=== PATIENT | female | born 1935 | race Asian ===

== ENCOUNTER 2022-10-05 17:00 | Inpatient (IN) | payer MEDICARE, MEDICAID ==
[~2022-10-05] VITALS: Ht 160 cm; Wt 35.0 kg
[2022-10-05] MEDS ORDERED: DIGO125T84 PO (17:10)
[2022-10-05] MEDS ORDERED: ATOR40TA28 PO (17:10)
[2022-10-05] MEDS ORDERED: RIVA20TA PO (17:10)
[2022-10-05] MEDS ORDERED: OS500 PO (17:10)
[2022-10-05] MEDS ORDERED: OXYB5TAB20 PO (17:10)
[2022-10-05] MEDS ORDERED: LISI-894 PO (17:10)
[2022-10-05 17:56] LABS: BASOPHILS % (AUTO) 0.5 % (0.0-2.0); EOSINOPHILS % (AUTO) 0 % (1.0-6.0); LYMPHOCYTES # (AUTO) 1.2 K/uL (1.0-4.8); LYMPHOCYTES % (AUTO) 7.3 % (22.0-44.0); MEAN CORPUSCULAR HEMOGLOBIN 31.1 pg (26.0-34.0); MEAN CORPUSCULAR HGB CONC 33.4 G/dL (31.0-37.0); MEAN CORPUSCULAR VOLUME 93 fL (80-100); MONOCYTES # (AUTO) 1.5 K/uL (0.1-1.0); MONOCYTES % (AUTO) 9.2 % (2.0-9.0); NEUTROPHILS # (AUTO) 13.3 K/uL (1.8-7.7); PLATELET COUNT (AUTO) 226 K/uL (150-450); RED BLOOD CELL COUNT(AUTO) 4.18 MIL/uL (4.00-5.20); RED CELL DISTRIBUTION WIDTH 13.8 % (11.5-14.5)
[2022-10-05 18:06] LABS: ANION GAP 8 mmol/L (8-16); CARBON DIOXIDE 28 mmol/L (22-29); CHLORIDE 100 mmol/L (98-107); CREATININE 0.81 mg/dL (0.60-1.30); GLOMERULAR FILTR. RATE CALC > 60 mL/min (>60); GLUCOSE,RANDOM 166 mg/dL (70-110); POTASSIUM 4.8 mmol/L (3.5-5.1); SODIUM SERUM 136 mmol/L (136-145); UREA NITROGEN, BLOOD 22 mg/dL (7-18)
[2022-10-05 18:17] LABS: LACTIC ACID 1.3 mmol/L (0.4-2.0)
[2022-10-05 18:20] LABS: COVID AG,FIA SOURCE NASOPHARYNGEAL
[2022-10-05 18:23] LABS: B-TYPE NATRIURETIC PEPTIDE 130 pg/mL (0-100)
[2022-10-05 18:24] LABS: ALANINE AMINOTRANSFERASE 21 U/L (12-78); ALBUMIN 3.5 g/dL (3.4-5.0); ALKALINE PHOSPHATASE 165 U/L (46-116); ASPARTATE AMINOTRANSFERASE 22 U/L (15-37); LIPASE 147 U/L (73-393); TOTAL PROTEIN, SERUM 8.1 g/dL (6.4-8.2)
[2022-10-05] MEDS ORDERED: ASPIRIN 81 MG CHEWABLE TABLET PO ONE (19:45)
[2022-10-05] MEDS ORDERED: ONDANSETRON HCL 4 MG/2 ML VIAL IVP PRN (21:00)
[2022-10-05] MEDS ORDERED: SODIUM CHLORIDE 0.9% 500 ML IV ONE (21:00)
[2022-10-05] MEDS: ATORVASTATIN CALCIUM 40 MG TABLET PO SCH (21:55)
[2022-10-05] MEDS: PIPERACILLIN/TAZO 3.375 GM/D5W 50 ML IV SCH (22:14)
[2022-10-05] MEDS ORDERED: RINGERS SOLUTION,LACTATED 1,000 ML IV SCH (23:59)
[2022-10-06] MEDS: METOPROLOL TARTRATE 5 MG/5 ML VIAL IVP SCH ×5 (00:53→23:49)
[2022-10-06 02:22] LABS: APPEARANCE,URINE CLEAR (CLEAR); BILIRUBIN,URINE NEGATIVE (NEGATIVE); GLUCOSE, URINE (UA) TRACE mg/dL (NEGATIVE); KETONES,URINE NEGATIVE (NEGATIVE); LEUKOCYTE ESTERASE ,URINE MODERATE (NEGATIVE); NITRATE,URINE NEGATIVE (NEGATIVE); OCCULT BLOOD,URINE MODERATE (NEGATIVE); PROTEIN,URINE 30-70 mg/dL (NEGATIVE); SPECIFIC GRAVITIY, URINE 1.021 (1.003-1.030); UROBILINOGEN,URINE <=1.0 mg/dL (<=1.0)
[2022-10-06 02:33] LABS: BACTERIA,URINE Few /HPF (None Seen); SQUAMOUS EPITHELIAL CELL,UR Few /LPF (None Seen)
[2022-10-06 02:34] LABS: AMORPHOUS SEDIMENT,UR Few /LPF (None Seen)
[2022-10-06] MEDS ORDERED: HALOPERIDOL LACTATE 5 MG/ML VIAL IM ONE ×2 (03:00→07:00)
[2022-10-06] MEDS ORDERED: DiphenhydrAMINE HCL 50 MG/ML VIAL IVP ONE ×2 (03:00→07:00)
[2022-10-06] MEDS: PIPERACILLIN/TAZO 3.375 GM/D5W 50 ML IV SCH (04:13)
[2022-10-06] MEDS ORDERED: LORazepam 2 MG/ML VIAL IVP ONE (07:00)
[2022-10-06 07:21] LABS: BASOPHILS % (AUTO) 0.3 % (0.0-2.0); EOSINOPHILS % (AUTO) 0 % (1.0-6.0); HEMATOCRIT 37.6 % (36-46); HEMOGLOBIN 12.6 g/dL (12.0-16.0); LYMPHOCYTES # (AUTO) 1.6 K/uL (1.0-4.8); LYMPHOCYTES % (AUTO) 9.7 % (22.0-44.0); MEAN CORPUSCULAR HEMOGLOBIN 31.3 pg (26.0-34.0); MEAN CORPUSCULAR HGB CONC 33.5 G/dL (31.0-37.0); MEAN CORPUSCULAR VOLUME 93 fL (80-100); MONOCYTES # (AUTO) 1.3 K/uL (0.1-1.0); MONOCYTES % (AUTO) 8.1 % (2.0-9.0); NEUTROPHILS # (AUTO) 13.3 K/uL (1.8-7.7); NEUTROPHILS % (AUTO) 81.9 % (40.0-70.0); PLATELET COUNT (AUTO) 223 K/uL (150-450); RED BLOOD CELL COUNT(AUTO) 4.03 MIL/uL (4.00-5.20); RED CELL DISTRIBUTION WIDTH 13.7 % (11.5-14.5)
[2022-10-06 07:39] LABS: CALCIUM, TOTAL 9.4 mg/dL (8.8-10.5); CREATININE 1.02 mg/dL (0.60-1.30); MAGNESIUM 2.1 mg/dL (1.80-2.40); POTASSIUM 3.3 mmol/L (3.5-5.1)
[2022-10-06] MEDS: CALCIUM [CALCIUM CARB 1250MG] 500 MG TABLET PO SCH (08:20)
[2022-10-06] MEDS: DIGOXIN 125 MCG TABLET PO SCH (08:20)
[2022-10-06] MEDS: LISINOPRIL 20 MG TABLET PO SCH (08:20)
[2022-10-06] MEDS ORDERED: OXYBUTYNIN CHLORIDE 5 MG TABLET PO SCH (09:00)
[2022-10-06] MEDS: PIPERACILLIN SODIUM/TAZOBACTAM 2.25 GM in DEXTROSE 5%-WATER 50 ML IV SCH ×3 (09:17→23:23)
[2022-10-06] MEDS ORDERED: POTASSIUM CHL 10 MEQ/WATER 50 ML IV PRN (09:30)
[2022-10-06] MEDS ORDERED: POTASSIUM CHLORIDE 20 MEQ ER TABLET PO PRN (09:30)
[2022-10-06 12:19] LABS: INR 1.1 (0.9-1.1); PROTHROMBIN TIME 11.6 SEC (9.4-11.6)
[2022-10-06] MEDS ORDERED: LIDOCAINE/PF 1% 30 ML VIAL ONE (14:45)
[2022-10-06 16:28] VITALS: BP 152/92
[2022-10-06] MEDS ORDERED: RIVAROXABAN 20 MG TABLET PO SCH (17:30)
[2022-10-06] MEDS: RIVAROXABAN 15 MG TABLET PO SCH (18:00)
[2022-10-06 20:12] VITALS: BP 142/80
[2022-10-06] MEDS ORDERED: DILTIAZEM HCL 5 MG/ML 5 ML VIAL IVP ONE (20:45)
[2022-10-06] MEDS: ATORVASTATIN CALCIUM 40 MG TABLET PO SCH (21:00)
[2022-10-06 23:52] VITALS: BP 154/107
[2022-10-07] VITALS (7 sets, daily range): BP systolic 132–148; BP diastolic 67–104
[2022-10-07] MEDS ORDERED: LORazepam 2 MG/ML VIAL IVP ONE (01:15)
[2022-10-07] MEDS ORDERED: DiphenhydrAMINE HCL 50 MG/ML VIAL IM ONE (01:15)
[2022-10-07] MEDS ORDERED: HALOPERIDOL LACTATE 5 MG/ML VIAL IM ONE (01:15)
[2022-10-07] MEDS ORDERED: DILTIAZEM HCL 5 MG/ML 5 ML VIAL IVP ONE (02:45)
[2022-10-07] MEDS: PIPERACILLIN SODIUM/TAZOBACTAM 2.25 GM in DEXTROSE 5%-WATER 50 ML IV SCH ×4 (04:13→22:34)
[2022-10-07] MEDS: METOPROLOL TARTRATE 5 MG/5 ML VIAL IVP SCH (06:43)
[2022-10-07] MEDS: DIGOXIN 125 MCG TABLET PO SCH (08:51)
[2022-10-07] MEDS: LISINOPRIL 20 MG TABLET PO SCH (08:51)
[2022-10-07] MEDS: CALCIUM [CALCIUM CARB 1250MG] 500 MG TABLET PO SCH (08:52)
[2022-10-07] MEDS ORDERED: POTASSIUM CHLORIDE 20 MEQ ER TABLET PO PRN (09:15)
[2022-10-07] MEDS ORDERED: POTASSIUM CHL 10 MEQ/WATER 50 ML IV PRN (09:15)
[2022-10-07] MEDS: METOPROLOL TARTRATE 25 MG TABLET PO SCH ×3 (09:36→18:45)
[2022-10-07 11:19] LABS: BASOPHILS % (AUTO) 0.4 % (0.0-2.0); EOSINOPHILS % (AUTO) 0.7 % (1.0-6.0); HEMATOCRIT 36.7 % (36-46); HEMOGLOBIN 12.5 g/dL (12.0-16.0); LYMPHOCYTES # (AUTO) 0.8 K/uL (1.0-4.8); LYMPHOCYTES % (AUTO) 7.3 % (22.0-44.0); MEAN CORPUSCULAR HEMOGLOBIN 31.3 pg (26.0-34.0); MEAN CORPUSCULAR HGB CONC 33.9 G/dL (31.0-37.0); MEAN CORPUSCULAR VOLUME 92 fL (80-100); MONOCYTES # (AUTO) 1.1 K/uL (0.1-1.0); MONOCYTES % (AUTO) 10.5 % (2.0-9.0); NEUTROPHILS # (AUTO) 8.8 K/uL (1.8-7.7); NEUTROPHILS % (AUTO) 81.1 % (40.0-70.0); PLATELET COUNT (AUTO) 217 K/uL (150-450); RED BLOOD CELL COUNT(AUTO) 3.98 MIL/uL (4.00-5.20); RED CELL DISTRIBUTION WIDTH 13.7 % (11.5-14.5)
[2022-10-07 11:33] LABS: ANION GAP 6 mmol/L (8-16); CALCIUM, TOTAL 9.4 mg/dL (8.8-10.5); CARBON DIOXIDE 28 mmol/L (22-29); CHLORIDE 104 mmol/L (98-107); CREATININE 0.65 mg/dL (0.60-1.30); GLOMERULAR FILTR. RATE CALC > 60 mL/min (>60); GLUCOSE,RANDOM 138 mg/dL (70-110); POTASSIUM 3.7 mmol/L (3.5-5.1); SODIUM SERUM 138 mmol/L (136-145); UREA NITROGEN, BLOOD 20 mg/dL (7-18)
[2022-10-07] MEDS: RIVAROXABAN 15 MG TABLET PO SCH (18:45)
[2022-10-07] MEDS: ATORVASTATIN CALCIUM 40 MG TABLET PO SCH (20:21)
[2022-10-08] MEDS: METOPROLOL TARTRATE 25 MG TABLET PO SCH ×4 (00:19→17:28)
[2022-10-08 00:30] VITALS: BP 156/97
[2022-10-08 04:00] VITALS: BP 161/90
[2022-10-08] MEDS: PIPERACILLIN SODIUM/TAZOBACTAM 2.25 GM in DEXTROSE 5%-WATER 50 ML IV SCH ×4 (04:56→22:13)
[2022-10-08] MEDS ORDERED: DILTIAZEM HCL 5 MG/ML 5 ML VIAL IVP ONE (06:15)
[2022-10-08 07:09] VITALS: BP 140/69
[2022-10-08] MEDS: LISINOPRIL 20 MG TABLET PO SCH (08:53)
[2022-10-08] MEDS: CALCIUM [CALCIUM CARB 1250MG] 500 MG TABLET PO SCH (08:53)
[2022-10-08] MEDS: DIGOXIN 125 MCG TABLET PO SCH (08:53)
[2022-10-08 11:41] VITALS: BP 135/79
[2022-10-08 15:23] VITALS: BP 135/85
[2022-10-08] MEDS: RIVAROXABAN 15 MG TABLET PO SCH (17:28)
[2022-10-08 19:40] VITALS: BP 142/77
[2022-10-08] MEDS ORDERED: HALOPERIDOL LACTATE 5 MG/ML VIAL IM ONE (21:00)
[2022-10-08] MEDS: ATORVASTATIN CALCIUM 40 MG TABLET PO SCH (21:00)
[2022-10-09 00:30] VITALS: BP 148/84
[2022-10-09] MEDS: METOPROLOL TARTRATE 25 MG TABLET PO SCH ×2 (00:42→06:05)
[2022-10-09] MEDS: PIPERACILLIN SODIUM/TAZOBACTAM 2.25 GM in DEXTROSE 5%-WATER 50 ML IV SCH ×4 (03:46→21:43)
[2022-10-09 04:42] VITALS: BP 137/79
[2022-10-09] MEDS: CALCIUM [CALCIUM CARB 1250MG] 500 MG TABLET PO SCH (07:42)
[2022-10-09] MEDS: LISINOPRIL 20 MG TABLET PO SCH (07:42)
[2022-10-09] MEDS: DIGOXIN 125 MCG TABLET PO SCH (07:42)
[2022-10-09 07:46] VITALS: BP 146/95
[2022-10-09 11:26] VITALS: BP 160/93
[2022-10-09 15:17] VITALS: BP 151/80
[2022-10-09] MEDS: METOPROLOL TARTRATE 50 MG TABLET PO SCH (16:47)
[2022-10-09] MEDS: RIVAROXABAN 15 MG TABLET PO SCH (17:58)
[2022-10-09 20:01] VITALS: BP 150/78
[2022-10-09] MEDS: ATORVASTATIN CALCIUM 40 MG TABLET PO SCH (20:42)
[2022-10-10] MEDS: METOPROLOL TARTRATE 50 MG TABLET PO SCH ×3 (00:03→16:28)
[2022-10-10 00:31] VITALS: BP 157/109
[2022-10-10] MEDS: PIPERACILLIN SODIUM/TAZOBACTAM 2.25 GM in DEXTROSE 5%-WATER 50 ML IV SCH ×4 (04:06→22:40)
[2022-10-10 04:54] VITALS: BP 138/98
[2022-10-10 07:25] VITALS: BP 162/91
[2022-10-10] MEDS: DIGOXIN 125 MCG TABLET PO SCH (08:07)
[2022-10-10] MEDS: CALCIUM [CALCIUM CARB 1250MG] 500 MG TABLET PO SCH (08:07)
[2022-10-10] MEDS: LISINOPRIL 20 MG TABLET PO SCH (08:07)
[2022-10-10 11:20] VITALS: BP 140/72
[2022-10-10 16:04] VITALS: BP 142/70
[2022-10-10] MEDS: RIVAROXABAN 15 MG TABLET PO SCH (18:49)
[2022-10-10 20:25] VITALS: BP 135/64
[2022-10-10] MEDS: ATORVASTATIN CALCIUM 40 MG TABLET PO SCH (20:50)
[2022-10-11 00:43] VITALS: BP 119/89
[2022-10-11] MEDS: METOPROLOL TARTRATE 50 MG TABLET PO SCH ×3 (00:47→16:11)
[2022-10-11] MEDS: PIPERACILLIN SODIUM/TAZOBACTAM 2.25 GM in DEXTROSE 5%-WATER 50 ML IV SCH ×4 (03:42→21:17)
[2022-10-11 04:23] VITALS: BP 142/73
[2022-10-11 08:00] VITALS: BP 133/85
[2022-10-11] MEDS: CALCIUM [CALCIUM CARB 1250MG] 500 MG TABLET PO SCH (08:42)
[2022-10-11] MEDS: DIGOXIN 125 MCG TABLET PO SCH (08:42)
[2022-10-11] MEDS: LISINOPRIL 20 MG TABLET PO SCH (08:42)
[2022-10-11 13:06] VITALS: BP 129/73
[2022-10-11 16:00] VITALS: BP 145/86
[2022-10-11] MEDS: RIVAROXABAN 15 MG TABLET PO SCH (17:38)
[2022-10-11 20:01] VITALS: BP 134/84
[2022-10-11] MEDS: ATORVASTATIN CALCIUM 40 MG TABLET PO SCH (21:17)
[2022-10-12 00:21] VITALS: BP 139/58
[2022-10-12] MEDS: METOPROLOL TARTRATE 50 MG TABLET PO SCH ×4 (00:41→22:24)
[2022-10-12] MEDS ORDERED: SODIUM CHLORIDE 0.9% 250 ML IV ONE (03:16)
[2022-10-12] MEDS: PIPERACILLIN SODIUM/TAZOBACTAM 2.25 GM in DEXTROSE 5%-WATER 50 ML IV SCH ×5 (03:18→22:23)
[2022-10-12 04:52] VITALS: BP 144/54
[2022-10-12] MEDS: LISINOPRIL 20 MG TABLET PO SCH (07:51)
[2022-10-12] MEDS: DIGOXIN 125 MCG TABLET PO SCH (07:51)
[2022-10-12] MEDS: CALCIUM [CALCIUM CARB 1250MG] 500 MG TABLET PO SCH (07:51)
[2022-10-12 08:06] VITALS: BP 165/86
[2022-10-12 11:13] VITALS: BP 140/65
[2022-10-12 13:04] LABS: BASOPHILS % (AUTO) 0.8 % (0.0-2.0); EOSINOPHILS % (AUTO) 2.5 % (1.0-6.0); HEMATOCRIT 39.5 % (36-46); HEMOGLOBIN 13.2 g/dL (12.0-16.0); LYMPHOCYTES # (AUTO) 1.1 K/uL (1.0-4.8); LYMPHOCYTES % (AUTO) 10.6 % (22.0-44.0); MEAN CORPUSCULAR HEMOGLOBIN 30.9 pg (26.0-34.0); MEAN CORPUSCULAR HGB CONC 33.3 G/dL (31.0-37.0); MEAN CORPUSCULAR VOLUME 93 fL (80-100); MONOCYTES # (AUTO) 0.8 K/uL (0.1-1.0); MONOCYTES % (AUTO) 8.1 % (2.0-9.0); NEUTROPHILS # (AUTO) 7.9 K/uL (1.8-7.7); PLATELET COUNT (AUTO) 279 K/uL (150-450); RED BLOOD CELL COUNT(AUTO) 4.26 MIL/uL (4.00-5.20); RED CELL DISTRIBUTION WIDTH 13.3 % (11.5-14.5)
[2022-10-12 13:08] LABS: ANION GAP 6 mmol/L (8-16); CALCIUM, TOTAL 9.6 mg/dL (8.8-10.5); CARBON DIOXIDE 32 mmol/L (22-29); CHLORIDE 102 mmol/L (98-107); CREATININE 0.65 mg/dL (0.60-1.30); GLOMERULAR FILTR. RATE CALC > 60 mL/min (>60); GLUCOSE,RANDOM 183 mg/dL (70-110); POTASSIUM 3.4 mmol/L (3.5-5.1); SODIUM SERUM 140 mmol/L (136-145); UREA NITROGEN, BLOOD 20 mg/dL (7-18)
[2022-10-12 15:22] VITALS: BP 148/64
[2022-10-12] MEDS: RIVAROXABAN 15 MG TABLET PO SCH (17:33)
[2022-10-12 19:20] VITALS: BP 129/93
[2022-10-12] MEDS: ATORVASTATIN CALCIUM 40 MG TABLET PO SCH (22:14)
[2022-10-13 00:19] VITALS: BP 149/71
[2022-10-13] MEDS: PIPERACILLIN SODIUM/TAZOBACTAM 2.25 GM in DEXTROSE 5%-WATER 50 ML IV SCH ×4 (05:34→21:34)
[2022-10-13 05:39] VITALS: BP 138/87
[2022-10-13 07:45] VITALS: BP 137/79
[2022-10-13] MEDS: MULTIVITAMINS WITH MINERALS, THERAPEUTIC TABLET PO SCH (10:52)
[2022-10-13] MEDS: DIGOXIN 125 MCG TABLET PO SCH (10:58)
[2022-10-13] MEDS: LISINOPRIL 20 MG TABLET PO SCH (10:58)
[2022-10-13] MEDS: CALCIUM [CALCIUM CARB 1250MG] 500 MG TABLET PO SCH (10:58)
[2022-10-13] MEDS: METOPROLOL TARTRATE 50 MG TABLET PO SCH ×2 (10:59→16:26)
[2022-10-13] MEDS: THIAMINE 100 MG TABLET PO SCH (10:59)
[2022-10-13 11:13] LABS: BASOPHILS % (AUTO) 0.5 % (0.0-2.0); EOSINOPHILS % (AUTO) 0.8 % (1.0-6.0); HEMATOCRIT 36.2 % (36-46); HEMOGLOBIN 12.3 g/dL (12.0-16.0); LYMPHOCYTES % (AUTO) 9.4 % (22.0-44.0); MEAN CORPUSCULAR HEMOGLOBIN 31.3 pg (26.0-34.0); MEAN CORPUSCULAR HGB CONC 33.9 G/dL (31.0-37.0); MEAN CORPUSCULAR VOLUME 92 fL (80-100); MONOCYTES # (AUTO) 0.8 K/uL (0.1-1.0); MONOCYTES % (AUTO) 7.2 % (2.0-9.0); NEUTROPHILS % (AUTO) 82.1 % (40.0-70.0); PLATELET COUNT (AUTO) 294 K/uL (150-450); RED BLOOD CELL COUNT(AUTO) 3.92 MIL/uL (4.00-5.20); RED CELL DISTRIBUTION WIDTH 13.5 % (11.5-14.5)
[2022-10-13 11:22] LABS: ANION GAP 7 mmol/L (8-16); CALCIUM, TOTAL 9.5 mg/dL (8.8-10.5); CARBON DIOXIDE 32 mmol/L (22-29); CHLORIDE 106 mmol/L (98-107); CREATININE 0.84 mg/dL (0.60-1.30); GLOMERULAR FILTR. RATE CALC > 60 mL/min (>60); GLUCOSE,RANDOM 196 mg/dL (70-110); SODIUM SERUM 145 mmol/L (136-145); UREA NITROGEN, BLOOD 29 mg/dL (7-18)
[2022-10-13 11:25] LABS: POTASSIUM 2.9 mmol/L (3.5-5.1)
[2022-10-13 12:12] VITALS: BP 146/80
[2022-10-13 15:20] VITALS: BP 140/90
[2022-10-13] MEDS: RIVAROXABAN 15 MG TABLET PO SCH (18:47)
[2022-10-13 21:22] VITALS: BP 143/84
[2022-10-13] MEDS: ATORVASTATIN CALCIUM 40 MG TABLET PO SCH (21:33)
[2022-10-14] MEDS: METOPROLOL TARTRATE 50 MG TABLET PO SCH ×4 (00:49→23:30)
[2022-10-14 01:04] VITALS: BP 134/74
[2022-10-14] MEDS: PIPERACILLIN SODIUM/TAZOBACTAM 2.25 GM in DEXTROSE 5%-WATER 50 ML IV SCH ×4 (03:52→21:30)
[2022-10-14 03:55] VITALS: BP 140/71
[2022-10-14 07:11] VITALS: BP 121/64
[2022-10-14] MEDS: THIAMINE 100 MG TABLET PO SCH (08:45)
[2022-10-14] MEDS: CALCIUM [CALCIUM CARB 1250MG] 500 MG TABLET PO SCH (08:45)
[2022-10-14] MEDS: DIGOXIN 125 MCG TABLET PO SCH (08:45)
[2022-10-14] MEDS: LISINOPRIL 20 MG TABLET PO SCH (08:45)
[2022-10-14] MEDS: MULTIVITAMINS WITH MINERALS, THERAPEUTIC TABLET PO SCH (08:45)
[2022-10-14 11:27] VITALS: BP 136/75
[2022-10-14] MEDS: RIVAROXABAN 15 MG TABLET PO SCH (18:25)
[2022-10-14] MEDS: ATORVASTATIN CALCIUM 40 MG TABLET PO SCH (21:03)
[2022-10-14 21:29] VITALS: BP 135/73
[2022-10-15] VITALS (7 sets, daily range): BP systolic 120–142; BP diastolic 58–79
[2022-10-15] MEDS: PIPERACILLIN SODIUM/TAZOBACTAM 2.25 GM in DEXTROSE 5%-WATER 50 ML IV SCH ×4 (03:45→20:42)
[2022-10-15] MEDS: MULTIVITAMINS WITH MINERALS, THERAPEUTIC TABLET PO SCH (09:11)
[2022-10-15] MEDS: LISINOPRIL 20 MG TABLET PO SCH (09:11)
[2022-10-15] MEDS: THIAMINE 100 MG TABLET PO SCH (09:11)
[2022-10-15] MEDS: METOPROLOL TARTRATE 50 MG TABLET PO SCH ×2 (09:11→17:50)
[2022-10-15] MEDS: DIGOXIN 125 MCG TABLET PO SCH (09:11)
[2022-10-15] MEDS: CALCIUM [CALCIUM CARB 1250MG] 500 MG TABLET PO SCH (09:11)
[2022-10-15] MEDS: RIVAROXABAN 15 MG TABLET PO SCH (17:50)
[2022-10-15] MEDS: ATORVASTATIN CALCIUM 40 MG TABLET PO SCH (21:14)
[2022-10-16] MEDS: METOPROLOL TARTRATE 50 MG TABLET PO SCH ×4 (00:41→23:33)
[2022-10-16] MEDS: PIPERACILLIN SODIUM/TAZOBACTAM 2.25 GM in DEXTROSE 5%-WATER 50 ML IV SCH ×4 (04:28→21:33)
[2022-10-16 06:23] VITALS: BP 132/80
[2022-10-16 07:30] VITALS: BP 129/72
[2022-10-16] MEDS: THIAMINE 100 MG TABLET PO SCH (08:05)
[2022-10-16] MEDS: DIGOXIN 125 MCG TABLET PO SCH (08:05)
[2022-10-16] MEDS: LISINOPRIL 20 MG TABLET PO SCH (08:05)
[2022-10-16] MEDS: MULTIVITAMINS WITH MINERALS, THERAPEUTIC TABLET PO SCH (08:05)
[2022-10-16] MEDS: CALCIUM [CALCIUM CARB 1250MG] 500 MG TABLET PO SCH (08:05)
[2022-10-16 11:07] VITALS: BP 116/78
[2022-10-16] MEDS ORDERED: LOPERAMIDE HCL 2 MG/15 ML SUSPENSION UDCUP PO PRN (15:00)
[2022-10-16 15:23] VITALS: BP 108/59
[2022-10-16] MEDS: RIVAROXABAN 15 MG TABLET PO SCH (17:01)
[2022-10-16 19:36] VITALS: BP 122/57
[2022-10-16] MEDS: ATORVASTATIN CALCIUM 40 MG TABLET PO SCH (20:10)
[2022-10-17] VITALS (7 sets, daily range): BP systolic 104–121; BP diastolic 53–82
[2022-10-17] MEDS: PIPERACILLIN SODIUM/TAZOBACTAM 2.25 GM in DEXTROSE 5%-WATER 50 ML IV SCH ×4 (04:07→21:38)
[2022-10-17] MEDS: METOPROLOL TARTRATE 50 MG TABLET PO SCH ×3 (08:00→23:50)
[2022-10-17] MEDS: MULTIVITAMINS WITH MINERALS, THERAPEUTIC TABLET PO SCH (08:44)
[2022-10-17] MEDS: DIGOXIN 125 MCG TABLET PO SCH (08:45)
[2022-10-17] MEDS: LISINOPRIL 20 MG TABLET PO SCH (08:45)
[2022-10-17] MEDS: THIAMINE 100 MG TABLET PO SCH (08:46)
[2022-10-17] MEDS: CALCIUM [CALCIUM CARB 1250MG] 500 MG TABLET PO SCH (08:46)
[2022-10-17] MEDS: RIVAROXABAN 15 MG TABLET PO SCH (17:47)
[2022-10-17] MEDS: ATORVASTATIN CALCIUM 40 MG TABLET PO SCH (20:33)
[2022-10-18] MEDS: PIPERACILLIN SODIUM/TAZOBACTAM 2.25 GM in DEXTROSE 5%-WATER 50 ML IV SCH ×2 (04:13→11:06)
[2022-10-18 04:46] VITALS: BP 119/76
[2022-10-18 08:42] VITALS: BP 106/72
[2022-10-18] MEDS: METOPROLOL TARTRATE 50 MG TABLET PO SCH ×2 (09:34→16:43)
[2022-10-18] MEDS: LISINOPRIL 20 MG TABLET PO SCH (09:35)
[2022-10-18] MEDS: THIAMINE 100 MG TABLET PO SCH (09:35)
[2022-10-18] MEDS: CALCIUM [CALCIUM CARB 1250MG] 500 MG TABLET PO SCH (09:35)
[2022-10-18] MEDS: DIGOXIN 125 MCG TABLET PO SCH (09:35)
[2022-10-18] MEDS: MULTIVITAMINS WITH MINERALS, THERAPEUTIC TABLET PO SCH (09:35)
[2022-10-18 11:38] VITALS: BP 116/61
[2022-10-18 15:58] VITALS: BP 111/62
[2022-10-18] MEDS: RIVAROXABAN 15 MG TABLET PO SCH (17:54)
[2022-10-18 19:22] VITALS: BP 118/52
[2022-10-18] MEDS: NYSTATIN 15 GM POWDER BOTTLE TP SCH (21:48)
[2022-10-18] MEDS: ATORVASTATIN CALCIUM 40 MG TABLET PO SCH (21:48)
[2022-10-19] VITALS (7 sets, daily range): BP systolic 103–126; BP diastolic 53–77
[2022-10-19] MEDS: METOPROLOL TARTRATE 50 MG TABLET PO SCH ×4 (00:51→23:33)
[2022-10-19] MEDS: DIGOXIN 125 MCG TABLET PO SCH (08:39)
[2022-10-19] MEDS: LISINOPRIL 20 MG TABLET PO SCH (08:40)
[2022-10-19] MEDS: THIAMINE 100 MG TABLET PO SCH (08:40)
[2022-10-19] MEDS: CALCIUM [CALCIUM CARB 1250MG] 500 MG TABLET PO SCH (08:40)
[2022-10-19] MEDS: NYSTATIN 15 GM POWDER BOTTLE TP SCH ×2 (10:52→19:55)
[2022-10-19] MEDS: MULTIVITAMINS WITH MINERALS, THERAPEUTIC TABLET PO SCH (10:52)
[2022-10-19] MEDS: RIVAROXABAN 15 MG TABLET PO SCH (18:27)
[2022-10-19] MEDS: ATORVASTATIN CALCIUM 40 MG TABLET PO SCH (19:55)
[2022-10-20 04:39] VITALS: BP 108/72
[2022-10-20 08:00] VITALS: BP 122/72
[2022-10-20 08:43] LABS: BASOPHILS % (AUTO) 0.7 % (0.0-2.0); EOSINOPHILS % (AUTO) 3.2 % (1.0-6.0); HEMATOCRIT 32.9 % (36-46); HEMOGLOBIN 10.9 g/dL (12.0-16.0); LYMPHOCYTES # (AUTO) 1.5 K/uL (1.0-4.8); LYMPHOCYTES % (AUTO) 13.3 % (22.0-44.0); MEAN CORPUSCULAR HEMOGLOBIN 30.7 pg (26.0-34.0); MEAN CORPUSCULAR HGB CONC 33.1 G/dL (31.0-37.0); MEAN CORPUSCULAR VOLUME 93 fL (80-100); MONOCYTES # (AUTO) 0.9 K/uL (0.1-1.0); MONOCYTES % (AUTO) 8.1 % (2.0-9.0); NEUTROPHILS # (AUTO) 8.2 K/uL (1.8-7.7); NEUTROPHILS % (AUTO) 74.7 % (40.0-70.0); PLATELET COUNT (AUTO) 376 K/uL (150-450); RED BLOOD CELL COUNT(AUTO) 3.54 MIL/uL (4.00-5.20)
[2022-10-20] MEDS: LISINOPRIL 20 MG TABLET PO SCH (08:51)
[2022-10-20] MEDS: MULTIVITAMINS WITH MINERALS, THERAPEUTIC TABLET PO SCH (08:51)
[2022-10-20] MEDS: THIAMINE 100 MG TABLET PO SCH (08:51)
[2022-10-20] MEDS: CALCIUM [CALCIUM CARB 1250MG] 500 MG TABLET PO SCH (08:51)
[2022-10-20] MEDS: DIGOXIN 125 MCG TABLET PO SCH (08:51)
[2022-10-20] MEDS: METOPROLOL TARTRATE 50 MG TABLET PO SCH ×2 (08:51→17:42)
[2022-10-20 08:55] LABS: ANION GAP 3 mmol/L (8-16); CALCIUM, TOTAL 9.3 mg/dL (8.8-10.5); CARBON DIOXIDE 31 mmol/L (22-29); CHLORIDE 102 mmol/L (98-107); CREATININE 0.68 mg/dL (0.60-1.30); GLOMERULAR FILTR. RATE CALC > 60 mL/min (>60); GLUCOSE,RANDOM 149 mg/dL (70-110); SODIUM SERUM 136 mmol/L (136-145); UREA NITROGEN, BLOOD 16 mg/dL (7-18)
[2022-10-20] MEDS: NYSTATIN 15 GM POWDER BOTTLE TP SCH ×2 (09:17→21:19)
[2022-10-20 11:19] VITALS: BP 125/95
[2022-10-20 15:36] VITALS: BP 108/72
[2022-10-20] MEDS: RIVAROXABAN 15 MG TABLET PO SCH (17:42)
[2022-10-20] MEDS: ATORVASTATIN CALCIUM 40 MG TABLET PO SCH (21:18)
[2022-10-20 22:23] VITALS: BP 118/64
[2022-10-21 00:47] VITALS: BP 120/79
[2022-10-21] MEDS: METOPROLOL TARTRATE 50 MG TABLET PO SCH ×3 (00:51→16:57)
[2022-10-21 05:46] VITALS: BP 123/77
[2022-10-21 07:43] VITALS: BP 118/72
[2022-10-21] MEDS: THIAMINE 100 MG TABLET PO SCH (09:09)
[2022-10-21] MEDS: LISINOPRIL 20 MG TABLET PO SCH (09:09)
[2022-10-21] MEDS: MULTIVITAMINS WITH MINERALS, THERAPEUTIC TABLET PO SCH (09:09)
[2022-10-21] MEDS: CALCIUM [CALCIUM CARB 1250MG] 500 MG TABLET PO SCH (09:10)
[2022-10-21] MEDS: DIGOXIN 125 MCG TABLET PO SCH (09:10)
[2022-10-21] MEDS: NYSTATIN 15 GM POWDER BOTTLE TP SCH ×2 (09:10→21:07)
[2022-10-21 11:20] VITALS: BP 122/68
[2022-10-21 15:21] VITALS: BP 132/69
[2022-10-21] MEDS: RIVAROXABAN 15 MG TABLET PO SCH (16:58)
[2022-10-21 20:13] VITALS: BP 112/66
[2022-10-21] MEDS: ATORVASTATIN CALCIUM 40 MG TABLET PO SCH (21:07)
[2022-10-22] VITALS (7 sets, daily range): BP systolic 90–132; BP diastolic 57–78
[2022-10-22] MEDS: METOPROLOL TARTRATE 50 MG TABLET PO SCH ×4 (00:15→23:36)
[2022-10-22] MEDS: CALCIUM [CALCIUM CARB 1250MG] 500 MG TABLET PO SCH (09:21)
[2022-10-22] MEDS: DIGOXIN 125 MCG TABLET PO SCH (09:21)
[2022-10-22] MEDS: MULTIVITAMINS WITH MINERALS, THERAPEUTIC TABLET PO SCH (09:21)
[2022-10-22] MEDS: THIAMINE 100 MG TABLET PO SCH (09:22)
[2022-10-22] MEDS: LISINOPRIL 20 MG TABLET PO SCH (09:22)
[2022-10-22] MEDS: NYSTATIN 15 GM POWDER BOTTLE TP SCH ×2 (09:23→20:33)
[2022-10-22] MEDS: RIVAROXABAN 15 MG TABLET PO SCH (17:42)
[2022-10-22] MEDS: ATORVASTATIN CALCIUM 40 MG TABLET PO SCH (20:33)
[2022-10-23 03:35] VITALS: BP 101/50
[2022-10-23 07:58] VITALS: BP 102/69
[2022-10-23] MEDS: METOPROLOL TARTRATE 50 MG TABLET PO SCH ×3 (08:00→23:38)
[2022-10-23] MEDS: LISINOPRIL 20 MG TABLET PO SCH (09:00)
[2022-10-23] MEDS: DIGOXIN 125 MCG TABLET PO SCH (09:31)
[2022-10-23] MEDS: THIAMINE 100 MG TABLET PO SCH (09:31)
[2022-10-23] MEDS: MULTIVITAMINS WITH MINERALS, THERAPEUTIC TABLET PO SCH (09:31)
[2022-10-23] MEDS: NYSTATIN 15 GM POWDER BOTTLE TP SCH ×2 (09:32→20:51)
[2022-10-23] MEDS: CALCIUM [CALCIUM CARB 1250MG] 500 MG TABLET PO SCH (09:32)
[2022-10-23 12:21] VITALS: BP 115/77
[2022-10-23 15:23] VITALS: BP 108/62
[2022-10-23 16:00] VITALS: BP 116/70
[2022-10-23] MEDS: RIVAROXABAN 15 MG TABLET PO SCH (17:16)
[2022-10-23 20:19] VITALS: BP 97/68
[2022-10-23] MEDS: ATORVASTATIN CALCIUM 40 MG TABLET PO SCH (20:51)
[2022-10-24 00:19] VITALS: BP 93/49
[2022-10-24 04:00] VITALS: BP 107/68
[2022-10-24 07:23] VITALS: BP 105/57
[2022-10-24] MEDS: METOPROLOL TARTRATE 50 MG TABLET PO SCH ×3 (08:35→23:45)
[2022-10-24] MEDS: MULTIVITAMINS WITH MINERALS, THERAPEUTIC TABLET PO SCH (08:35)
[2022-10-24] MEDS: DIGOXIN 125 MCG TABLET PO SCH (08:35)
[2022-10-24] MEDS: LISINOPRIL 20 MG TABLET PO SCH (08:35)
[2022-10-24] MEDS: THIAMINE 100 MG TABLET PO SCH (08:35)
[2022-10-24] MEDS: NYSTATIN 15 GM POWDER BOTTLE TP SCH ×2 (08:36→20:40)
[2022-10-24] MEDS: CALCIUM [CALCIUM CARB 1250MG] 500 MG TABLET PO SCH (08:55)
[2022-10-24 11:21] VITALS: BP 102/71
[2022-10-24 15:29] VITALS: BP 103/62
[2022-10-24] MEDS: RIVAROXABAN 15 MG TABLET PO SCH (17:23)
[2022-10-24 19:24] VITALS: BP 105/57
[2022-10-24] MEDS: ATORVASTATIN CALCIUM 40 MG TABLET PO SCH (20:40)
[2022-10-25 00:35] VITALS: BP 114/72
[2022-10-25 05:50] VITALS: BP 118/69
[2022-10-25 07:57] VITALS: BP 137/94
[2022-10-25] MEDS: METOPROLOL TARTRATE 50 MG TABLET PO SCH ×2 (09:01→17:03)
[2022-10-25] MEDS: LISINOPRIL 20 MG TABLET PO SCH (09:01)
[2022-10-25] MEDS: MULTIVITAMINS WITH MINERALS, THERAPEUTIC TABLET PO SCH (09:01)
[2022-10-25] MEDS: THIAMINE 100 MG TABLET PO SCH (09:01)
[2022-10-25] MEDS: CALCIUM [CALCIUM CARB 1250MG] 500 MG TABLET PO SCH (09:02)
[2022-10-25] MEDS: DIGOXIN 125 MCG TABLET PO SCH (09:02)
[2022-10-25] MEDS: NYSTATIN 15 GM POWDER BOTTLE TP SCH ×2 (09:02→20:11)
[2022-10-25 12:12] VITALS: BP 112/69
[2022-10-25 16:26] VITALS: BP 125/85
[2022-10-25] MEDS: RIVAROXABAN 15 MG TABLET PO SCH (17:03)
[2022-10-25 20:03] VITALS: BP 117/72
[2022-10-25] MEDS: ATORVASTATIN CALCIUM 40 MG TABLET PO SCH (20:11)
[2022-10-26 00:06] VITALS: BP 115/81
[2022-10-26] MEDS: METOPROLOL TARTRATE 50 MG TABLET PO SCH ×4 (00:08→23:25)
[2022-10-26 05:28] VITALS: BP 120/74
[2022-10-26 08:09] VITALS: BP 101/66
[2022-10-26] MEDS: THIAMINE 100 MG TABLET PO SCH (08:43)
[2022-10-26] MEDS: MULTIVITAMINS WITH MINERALS, THERAPEUTIC TABLET PO SCH (08:43)
[2022-10-26] MEDS: LISINOPRIL 20 MG TABLET PO SCH (08:43)
[2022-10-26] MEDS: DIGOXIN 125 MCG TABLET PO SCH (08:43)
[2022-10-26] MEDS: CALCIUM [CALCIUM CARB 1250MG] 500 MG TABLET PO SCH (08:43)
[2022-10-26] MEDS: NYSTATIN 15 GM POWDER BOTTLE TP SCH ×2 (08:47→20:31)
[2022-10-26 12:22] VITALS: BP 99/55
[2022-10-26 16:00] VITALS: BP 113/68
[2022-10-26] MEDS: RIVAROXABAN 15 MG TABLET PO SCH (17:18)
[2022-10-26] MEDS: ATORVASTATIN CALCIUM 40 MG TABLET PO SCH (20:30)
[2022-10-26 22:20] VITALS: BP 101/63
[2022-10-27 04:38] VITALS: BP 115/75
[2022-10-27 07:43] VITALS: BP 133/71
[2022-10-27] MEDS: LISINOPRIL 20 MG TABLET PO SCH (10:09)
[2022-10-27] MEDS: DIGOXIN 125 MCG TABLET PO SCH (10:09)
[2022-10-27] MEDS: METOPROLOL TARTRATE 50 MG TABLET PO SCH ×3 (10:09→23:52)
[2022-10-27] MEDS: THIAMINE 100 MG TABLET PO SCH (10:09)
[2022-10-27] MEDS: CALCIUM [CALCIUM CARB 1250MG] 500 MG TABLET PO SCH (10:09)
[2022-10-27] MEDS: MULTIVITAMINS WITH MINERALS, THERAPEUTIC TABLET PO SCH (10:09)
[2022-10-27] MEDS: NYSTATIN 15 GM POWDER BOTTLE TP SCH ×2 (10:10→20:45)
[2022-10-27 12:04] VITALS: BP 110/65
[2022-10-27 15:34] VITALS: BP 127/77
[2022-10-27 17:20] LABS: EOSINOPHILS % (AUTO) 3.9 % (1.0-6.0); HEMATOCRIT 34.4 % (36-46); HEMOGLOBIN 11.1 g/dL (12.0-16.0); LYMPHOCYTES # (AUTO) 1.4 K/uL (1.0-4.8); LYMPHOCYTES % (AUTO) 16.6 % (22.0-44.0); MEAN CORPUSCULAR HEMOGLOBIN 30.1 pg (26.0-34.0); MEAN CORPUSCULAR HGB CONC 32.4 G/dL (31.0-37.0); MEAN CORPUSCULAR VOLUME 93 fL (80-100); MONOCYTES # (AUTO) 0.7 K/uL (0.1-1.0); MONOCYTES % (AUTO) 8.6 % (2.0-9.0); NEUTROPHILS # (AUTO) 5.8 K/uL (1.8-7.7); NEUTROPHILS % (AUTO) 69.9 % (40.0-70.0); PLATELET COUNT (AUTO) 399 K/uL (150-450); RED BLOOD CELL COUNT(AUTO) 3.71 MIL/uL (4.00-5.20); RED CELL DISTRIBUTION WIDTH 13.8 % (11.5-14.5)
[2022-10-27 17:31] LABS: ALANINE AMINOTRANSFERASE 36 U/L (12-78); ALBUMIN 2.4 g/dL (3.4-5.0); ALKALINE PHOSPHATASE 124 U/L (46-116); ANION GAP 5 mmol/L (8-16); ASPARTATE AMINOTRANSFERASE 35 U/L (15-37); BILIRUBIN,TOTAL 0.2 mg/dL (0.1-1.0); CALCIUM, TOTAL 8.9 mg/dL (8.8-10.5); CARBON DIOXIDE 31 mmol/L (22-29); CHLORIDE 102 mmol/L (98-107); CREATININE 0.57 mg/dL (0.60-1.30); GLOMERULAR FILTR. RATE CALC > 60 mL/min (>60); GLUCOSE,RANDOM 122 mg/dL (70-110); POTASSIUM 4.4 mmol/L (3.5-5.1); SODIUM SERUM 138 mmol/L (136-145); TOTAL PROTEIN, SERUM 6.8 g/dL (6.4-8.2); UREA NITROGEN, BLOOD 20 mg/dL (7-18)
[2022-10-27] MEDS: RIVAROXABAN 15 MG TABLET PO SCH (18:07)
[2022-10-27 19:51] VITALS: BP 145/95
[2022-10-27] MEDS: ATORVASTATIN CALCIUM 40 MG TABLET PO SCH (20:44)
[2022-10-27 23:36] VITALS: BP 118/75
[2022-10-27] MEDS ORDERED: SODIUM CHLORIDE 0.9% 250 ML IV ONE (23:50)
[2022-10-28 04:57] VITALS: BP 148/79
[2022-10-28 07:43] VITALS: BP 134/72
[2022-10-28] MEDS: MULTIVITAMINS WITH MINERALS, THERAPEUTIC TABLET PO SCH (09:07)
[2022-10-28] MEDS: DIGOXIN 125 MCG TABLET PO SCH (09:07)
[2022-10-28] MEDS: LISINOPRIL 20 MG TABLET PO SCH (09:07)
[2022-10-28] MEDS: THIAMINE 100 MG TABLET PO SCH (09:07)
[2022-10-28] MEDS: CALCIUM [CALCIUM CARB 1250MG] 500 MG TABLET PO SCH (09:08)
[2022-10-28] MEDS: METOPROLOL TARTRATE 50 MG TABLET PO SCH ×2 (09:08→16:06)
[2022-10-28] MEDS: NYSTATIN 15 GM POWDER BOTTLE TP SCH ×2 (09:11→21:49)
[2022-10-28 11:31] VITALS: BP 136/77
[2022-10-28 15:01] VITALS: BP 141/77
[2022-10-28] MEDS: RIVAROXABAN 15 MG TABLET PO SCH (18:25)
[2022-10-28 20:43] VITALS: BP 135/70
[2022-10-28] MEDS: ATORVASTATIN CALCIUM 40 MG TABLET PO SCH (21:49)
[2022-10-29] MEDS: METOPROLOL TARTRATE 50 MG TABLET PO SCH ×3 (00:12→16:49)
[2022-10-29 05:18] VITALS: BP 107/59
[2022-10-29 08:36] VITALS: BP 105/59
[2022-10-29] MEDS: LISINOPRIL 20 MG TABLET PO SCH (08:46)
[2022-10-29] MEDS: CALCIUM [CALCIUM CARB 1250MG] 500 MG TABLET PO SCH (08:46)
[2022-10-29] MEDS: MULTIVITAMINS WITH MINERALS, THERAPEUTIC TABLET PO SCH (08:46)
[2022-10-29] MEDS: THIAMINE 100 MG TABLET PO SCH (08:46)
[2022-10-29] MEDS: DIGOXIN 125 MCG TABLET PO SCH (08:47)
[2022-10-29 12:13] VITALS: BP 112/72
[2022-10-29 15:43] VITALS: BP 112/65
[2022-10-29] MEDS: NYSTATIN 15 GM POWDER BOTTLE TP SCH ×2 (16:49→20:16)
[2022-10-29] MEDS: RIVAROXABAN 15 MG TABLET PO SCH (16:49)
[2022-10-29 19:33] VITALS: BP 113/68
[2022-10-29] MEDS: ATORVASTATIN CALCIUM 40 MG TABLET PO SCH (20:16)
[2022-10-30 00:23] VITALS: BP 103/66
[2022-10-30] MEDS: METOPROLOL TARTRATE 50 MG TABLET PO SCH ×4 (00:58→16:47)
[2022-10-30 04:42] VITALS: BP 116/75
[2022-10-30 07:48] VITALS: BP 112/67
[2022-10-30] MEDS: LISINOPRIL 20 MG TABLET PO SCH (08:18)
[2022-10-30] MEDS: CALCIUM [CALCIUM CARB 1250MG] 500 MG TABLET PO SCH (08:18)
[2022-10-30] MEDS: MULTIVITAMINS WITH MINERALS, THERAPEUTIC TABLET PO SCH (08:18)
[2022-10-30] MEDS: DIGOXIN 125 MCG TABLET PO SCH (08:19)
[2022-10-30] MEDS: NYSTATIN 15 GM POWDER BOTTLE TP SCH ×2 (08:19→20:52)
[2022-10-30] MEDS: THIAMINE 100 MG TABLET PO SCH (08:19)
[2022-10-30 11:21] VITALS: BP 108/70
[2022-10-30 15:40] VITALS: BP 114/66
[2022-10-30] MEDS: RIVAROXABAN 15 MG TABLET PO SCH (17:00)
[2022-10-30] MEDS: ATORVASTATIN CALCIUM 40 MG TABLET PO SCH (20:52)
[2022-10-30 23:58] VITALS: BP 113/60
[2022-10-31] MEDS: METOPROLOL TARTRATE 50 MG TABLET PO SCH ×3 (00:53→16:00)
[2022-10-31 04:00] VITALS: BP 121/64
[2022-10-31 07:53] VITALS: BP 128/83
[2022-10-31] MEDS: DIGOXIN 125 MCG TABLET PO SCH (09:03)
[2022-10-31] MEDS: MULTIVITAMINS WITH MINERALS, THERAPEUTIC TABLET PO SCH (09:03)
[2022-10-31] MEDS: LISINOPRIL 20 MG TABLET PO SCH (09:03)
[2022-10-31] MEDS: THIAMINE 100 MG TABLET PO SCH (09:03)
[2022-10-31] MEDS: CALCIUM [CALCIUM CARB 1250MG] 500 MG TABLET PO SCH (09:04)
[2022-10-31] MEDS: NYSTATIN 15 GM POWDER BOTTLE TP SCH ×2 (09:04→21:55)
[2022-10-31 11:06] VITALS: BP 120/68
[2022-10-31 15:38] VITALS: BP 118/70
[2022-10-31] MEDS: RIVAROXABAN 15 MG TABLET PO SCH (18:25)
[2022-10-31 20:33] VITALS: BP 96/68
[2022-10-31] MEDS: ATORVASTATIN CALCIUM 40 MG TABLET PO SCH (21:55)
[2022-11-01 00:34] VITALS: BP 106/71
[2022-11-01 04:47] VITALS: BP 102/64
[2022-11-01 07:55] VITALS: BP 127/76
[2022-11-01] MEDS: MULTIVITAMINS WITH MINERALS, THERAPEUTIC TABLET PO SCH (08:57)
[2022-11-01] MEDS: DIGOXIN 125 MCG TABLET PO SCH (08:57)
[2022-11-01] MEDS: LISINOPRIL 20 MG TABLET PO SCH (08:57)
[2022-11-01] MEDS: CALCIUM [CALCIUM CARB 1250MG] 500 MG TABLET PO SCH (08:57)
[2022-11-01] MEDS: RIVAROXABAN 15 MG TABLET PO SCH (08:57)
[2022-11-01] MEDS: METOPROLOL TARTRATE 50 MG TABLET PO SCH ×3 (08:57→17:30)
[2022-11-01] MEDS: THIAMINE 100 MG TABLET PO SCH (08:58)
[2022-11-01] MEDS: NYSTATIN 15 GM POWDER BOTTLE TP SCH ×2 (08:58→21:05)
[2022-11-01 12:00] VITALS: BP 101/59
[2022-11-01 18:03] VITALS: BP 110/78
[2022-11-01 19:54] VITALS: BP 98/62
[2022-11-01] MEDS: ATORVASTATIN CALCIUM 40 MG TABLET PO SCH (20:23)
[2022-11-02 01:27] VITALS: BP 97/63
[2022-11-02 05:32] VITALS: BP 116/69
[2022-11-02 07:35] VITALS: BP 98/69
[2022-11-02] MEDS ORDERED: BUPIVACAINE HCL/PF 0.25% 30 ML VIAL ONE (07:58)
[2022-11-02] MEDS ORDERED: WATER IV ONE (08:00)
[2022-11-02] MEDS: DIGOXIN 125 MCG TABLET PO SCH (08:00)
[2022-11-02] MEDS ORDERED: DEXTROSE 5% IV ONE (08:00)
[2022-11-02] MEDS ORDERED: DOXYCYCLINE HYCLATE IV ONE (08:00)
[2022-11-02] MEDS ORDERED: SODIUM CHLORIDE 0.9% 1,000 ML ONE (08:02)
[2022-11-02] MEDS ORDERED: DOXYCYCLINE HYCLATE 100 MG/VIAL IPL ONE (08:15)
[2022-11-02] MEDS ORDERED: RINGERS SOLUTION,LACTATED 1,000 ML IV ONE (09:15)
[2022-11-02] MEDS: MULTIVITAMINS WITH MINERALS, THERAPEUTIC TABLET PO SCH (11:55)
[2022-11-02] MEDS: THIAMINE 100 MG TABLET PO SCH (11:55)
[2022-11-02] MEDS: NYSTATIN 15 GM POWDER BOTTLE TP SCH ×2 (11:56→22:08)
[2022-11-02] MEDS: LISINOPRIL 20 MG TABLET PO SCH (11:56)
[2022-11-02] MEDS: CALCIUM [CALCIUM CARB 1250MG] 500 MG TABLET PO SCH (11:56)
[2022-11-02] MEDS: METOPROLOL TARTRATE 50 MG TABLET PO SCH ×4 (11:57→23:29)
[2022-11-02 16:15] VITALS: BP 109/63
[2022-11-02 20:07] VITALS: BP 114/64
[2022-11-02] MEDS: ATORVASTATIN CALCIUM 40 MG TABLET PO SCH (22:08)
[2022-11-03] VITALS: BP 110/62
[2022-11-03 05:27] VITALS: BP 121/71
[2022-11-03 07:23] VITALS: BP 118/65
[2022-11-03] MEDS: CALCIUM [CALCIUM CARB 1250MG] 500 MG TABLET PO SCH (08:13)
[2022-11-03] MEDS: METOPROLOL TARTRATE 50 MG TABLET PO SCH ×2 (08:13→16:00)
[2022-11-03] MEDS: DIGOXIN 125 MCG TABLET PO SCH (08:13)
[2022-11-03] MEDS: NYSTATIN 15 GM POWDER BOTTLE TP SCH ×2 (08:13→21:24)
[2022-11-03] MEDS: THIAMINE 100 MG TABLET PO SCH (08:13)
[2022-11-03] MEDS: MULTIVITAMINS WITH MINERALS, THERAPEUTIC TABLET PO SCH (08:13)
[2022-11-03] MEDS: LISINOPRIL 20 MG TABLET PO SCH (08:13)
[2022-11-03 11:13] VITALS: BP 95/49
[2022-11-03 15:54] VITALS: BP 97/47
[2022-11-03 20:02] VITALS: BP 102/50
[2022-11-03] MEDS: ATORVASTATIN CALCIUM 40 MG TABLET PO SCH (21:23)
[2022-11-04 01:20] VITALS: BP 99/49
[2022-11-04 06:10] VITALS: BP 98/49
[2022-11-04] MEDS: LISINOPRIL 20 MG TABLET PO SCH (08:24)
[2022-11-04] MEDS: DIGOXIN 125 MCG TABLET PO SCH (08:24)
[2022-11-04] MEDS: MULTIVITAMINS WITH MINERALS, THERAPEUTIC TABLET PO SCH (08:24)
[2022-11-04] MEDS: METOPROLOL TARTRATE 50 MG TABLET PO SCH ×4 (08:24→23:53)
[2022-11-04] MEDS: THIAMINE 100 MG TABLET PO SCH (08:24)
[2022-11-04] MEDS: CALCIUM [CALCIUM CARB 1250MG] 500 MG TABLET PO SCH (08:25)
[2022-11-04 09:35] VITALS: BP 163/70
[2022-11-04 11:15] VITALS: BP 98/61
[2022-11-04 15:15] VITALS: BP 100/62
[2022-11-04] MEDS: NYSTATIN 15 GM POWDER BOTTLE TP SCH ×2 (19:29→20:18)
[2022-11-04 20:00] VITALS: BP 113/70
[2022-11-04] MEDS: ATORVASTATIN CALCIUM 40 MG TABLET PO SCH (20:18)
[2022-11-05] VITALS: BP 105/71
[2022-11-05 04:00] VITALS: BP 92/68
[2022-11-05 07:45] VITALS: BP 103/68
[2022-11-05] MEDS: METOPROLOL TARTRATE 50 MG TABLET PO SCH ×2 (08:00→16:00)
[2022-11-05] MEDS: THIAMINE 100 MG TABLET PO SCH (08:06)
[2022-11-05] MEDS: DIGOXIN 125 MCG TABLET PO SCH (08:06)
[2022-11-05] MEDS: NYSTATIN 15 GM POWDER BOTTLE TP SCH ×2 (08:07→20:08)
[2022-11-05] MEDS: CALCIUM [CALCIUM CARB 1250MG] 500 MG TABLET PO SCH (08:07)
[2022-11-05] MEDS: LISINOPRIL 20 MG TABLET PO SCH (08:07)
[2022-11-05] MEDS: MULTIVITAMINS WITH MINERALS, THERAPEUTIC TABLET PO SCH (08:07)
[2022-11-05 11:13] VITALS: BP 113/57
[2022-11-05 15:54] VITALS: BP 98/60
[2022-11-05] MEDS: ATORVASTATIN CALCIUM 40 MG TABLET PO SCH (20:07)
[2022-11-05 21:15] VITALS: BP 94/49
[2022-11-06] MEDS: METOPROLOL TARTRATE 50 MG TABLET PO SCH ×4 (00:03→23:37)
[2022-11-06 00:53] VITALS: BP 102/62
[2022-11-06 05:22] VITALS: BP 124/72
[2022-11-06 07:30] VITALS: BP 131/73
[2022-11-06] MEDS: LISINOPRIL 20 MG TABLET PO SCH (09:34)
[2022-11-06] MEDS: THIAMINE 100 MG TABLET PO SCH (09:35)
[2022-11-06] MEDS: CALCIUM [CALCIUM CARB 1250MG] 500 MG TABLET PO SCH (09:35)
[2022-11-06] MEDS: DIGOXIN 125 MCG TABLET PO SCH (09:35)
[2022-11-06] MEDS: MULTIVITAMINS WITH MINERALS, THERAPEUTIC TABLET PO SCH (09:35)
[2022-11-06] MEDS: NYSTATIN 15 GM POWDER BOTTLE TP SCH ×2 (09:36→21:00)
[2022-11-06 11:19] VITALS: BP 103/63
[2022-11-06 15:05] VITALS: BP 129/64
[2022-11-06 20:50] VITALS: BP 100/67
[2022-11-06] MEDS: ATORVASTATIN CALCIUM 40 MG TABLET PO SCH (21:37)
[2022-11-07 04:00] VITALS: BP 127/67
[2022-11-07 07:24] VITALS: BP 123/79
[2022-11-07] MEDS: MULTIVITAMINS WITH MINERALS, THERAPEUTIC TABLET PO SCH (08:01)
[2022-11-07] MEDS: DIGOXIN 125 MCG TABLET PO SCH (08:01)
[2022-11-07] MEDS: THIAMINE 100 MG TABLET PO SCH (08:01)
[2022-11-07] MEDS: CALCIUM [CALCIUM CARB 1250MG] 500 MG TABLET PO SCH (08:01)
[2022-11-07] MEDS: LISINOPRIL 20 MG TABLET PO SCH (08:01)
[2022-11-07] MEDS: METOPROLOL TARTRATE 50 MG TABLET PO SCH ×2 (08:01→16:00)
[2022-11-07] MEDS: NYSTATIN 15 GM POWDER BOTTLE TP SCH (08:01)
[2022-11-07] MEDS ORDERED: METO50TA18 PO (12:23)
[2022-11-07] MEDS ORDERED: NYST15PO4 TP (12:24)
[2022-11-07] MEDS ORDERED: MULT-248 PO (12:24)
[2022-11-07] MEDS ORDERED: HEPA500018 SQ (12:25)
[2022-11-07] MEDS ORDERED: LOPE2CAP PO (12:27)
[2022-11-07 15:00] VITALS: BP 97/60
[2022-11-07] MEDS ORDERED: HEPARIN SODIUM,PORCINE 5,000 UNITS/ML VIAL SQ SCH (21:00)
== END 2022-11-07 16:19 | DRG 871 ==
LOC: EMS 17:04 → AHU 10-06 07:31 → 5S 10-06 14:56 → 6S 11-06 19:12
PROVIDERS: ADMIT Internal Medicine; ATTEND Internal Medicine
PROC: 0W9930Z Drainage of Right Pleural Cavity with Drainage Device, Percutaneous Approach (ICD-10-PCS; principal; 2022-10-06)
PROC: 05HY33Z Insertion of Infusion Device into Upper Vein, Percutaneous Approach (ICD-10-PCS; 2022-10-09)
PROC: 5A09357 Assistance with Respiratory Ventilation, Less than 24 Consecutive Hours, Continuous Positive Airway Pressure (ICD-10-PCS; 2022-11-04)
DX: A41.9 Sepsis, unspecified organism (principal); E43 Unspecified severe protein-calorie malnutrition; I21.A1 Myocardial infarction type 2; J69.0 Pneumonitis due to inhalation of food and vomit; J93.83 Other pneumothorax; G93.40 Encephalopathy, unspecified; Z68.1 Body mass index [BMI] 19.9 or less, adult; I48.19 Other persistent atrial fibrillation; R64 Cachexia; J94.8 Other specified pleural conditions; J93.82 Other air leak; Z20.822 Contact with and (suspected) exposure to COVID-19; I10 Essential (primary) hypertension; R62.7 Adult failure to thrive; E78.5 Hyperlipidemia, unspecified; E78.00 Pure hypercholesterolemia, unspecified; J43.9 Emphysema, unspecified; F03.90 Unspecified dementia, unspecified severity, without behavioral disturbance, psychotic disturbance, mood disturbance, and anxiety; E87.6 Hypokalemia; R13.10 Dysphagia, unspecified; Z78.1 Physical restraint status; Z79.01 Long term (current) use of anticoagulants; Z86.73 Personal history of transient ischemic attack (TIA), and cerebral infarction without residual deficits
CPT/HCPCS: 70450; 71045; 71250; 75989; 80048; 80053; 80162; 81001; 83605; 83690; 83735; 83880; 84100; 84132; 84484; 85025; 85610; 85730; 87040; 92526; 92610; 93005; 93306; 94660; 97110; 97116; 97163; 97167; 97530; 97535; 99291; G0378; J1200; J1630; J2060; J2405; J2543; J3490; J7030; J7040; J7050; J7060; J7120; 36415-L1; 36415-TC